=== PATIENT | female | born 1990 | race Caucasian/White ===

== ENCOUNTER → 2017-08-10 | Emergency (ER) | payer OTHER ==
[~2017-08-10] VITALS: Ht 160 cm; Wt 75.3 kg
[~2017-08-10] MED LIST: PROVENTIL3 ML/2.5 M IH; SYMBICORT 16010.2 GM IH; ZITHROMAX500 MG PO; ZYNCOF 20-400120 ML PO
== END | disposition home or self-care (01) ==
LOC: ER 11:18
DX: S30.0XXA Contusion of lower back and pelvis, initial encounter (principal); O26.891 Other specified pregnancy related conditions, first trimester; Z3A.10 10 weeks gestation of pregnancy; Z04.2 Encounter for examination and observation following work accident; Z34.01 Encounter for supervision of normal first pregnancy, first trimester; W01.0XXA Fall on same level from slipping, tripping and stumbling without subsequent striking against object, initial encounter; Y93.89 Activity, other specified; Y92.69 Other specified industrial and construction area as the place of occurrence of the external cause; Y99.8 Other external cause status

== ENCOUNTER 2018-02-26 13:13 | Inpatient (IN) | payer OTHER ==
[~2018-02-26] VITALS: Ht 160 cm; Wt 93.9 kg
== END 2018-03-11 14:20 | DRG 766 ==
LOC: LDR 02-27 14:45 → O/R 03-08 10:19 → OB/GYN 03-08 14:07
PROVIDERS: Specialist
PROC: 4A033R1 Measurement of Arterial Saturation, Peripheral, Percutaneous Approach (ICD-10-PCS; 2018-03-08)
PROC: 4A1HXCZ Monitoring of Products of Conception, Cardiac Rate, External Approach (ICD-10-PCS; 2018-03-08)
PROC: 10D00Z1 Extraction of Products of Conception, Low, Open Approach (ICD-10-PCS; principal; 2018-03-08 09:15)
DX: O48.0 Post-term pregnancy (principal); O65.8 Obstructed labor due to other maternal pelvic abnormalities; Z3A.40 40 weeks gestation of pregnancy; Z37.0 Single live birth

== ENCOUNTER 2018-03-06 20:12 | Outpatient (CLI) | payer OTHER | END 2018-03-07 11:13 | disposition home or self-care (01) | LOC: OBS/DEL 20:12 | DX: O47.1 False labor at or after 37 completed weeks of gestation (principal); O26.893 Other specified pregnancy related conditions, third trimester; N89.8 Other specified noninflammatory disorders of vagina; Z34.03 Encounter for supervision of normal first pregnancy, third trimester ==

== ENCOUNTER 2022-01-05 06:09 | Emergency (ER) | payer OTHER ==
[~2022-01-05] VITALS: Ht 172.7 cm; Wt 81.6 kg
== END 2022-01-05 09:41 | disposition home or self-care (01) ==
LOC: ER 06:09
DX: O99.513 Diseases of the respiratory system complicating pregnancy, third trimester (principal); Z3A.31 31 weeks gestation of pregnancy; J45.901 Unspecified asthma with (acute) exacerbation; Z20.822 Contact with and (suspected) exposure to COVID-19

== ENCOUNTER 2025-01-15 16:50 | Inpatient (IN) | payer OTHER ==
[~2025-01-15] VITALS: Ht 160 cm; Wt 90.7 kg
[2025-01-15] MEDS ORDERED: HYOSCYAMINE SULFATE 0.125 MG TAB.SUBL ONE (18:55)
[2025-01-15] MEDS ORDERED: FAMOTIDINE/PF 20 MG/2 ML VIAL ONE (18:55)
[2025-01-15] MEDS ORDERED: HYOSCYAMINE SULFATE 0.125 MG TAB.SUBL SL ONE (19:00)
[2025-01-15] MEDS ORDERED: FAMOTIDINE/PF 20 MG/2 ML VIAL IV PUSH ONE (19:00)
[2025-01-15 19:26] LABS: BASO % 0.3 % (0.1-1.2); EOS # 0.14 (0.04-0.54); EOS % 1.2 % (0.7-7.0); HEMATOCRIT 41.2 % (34.1-44.9); HEMOGLOBIN 13.5 g/dL (11.2-15.7); LYMPH # 1.91 (1.18-3.74); LYMPH % 15.9 % (19.3-53.1); MEAN CORPUSCULAR HEMOGLOBIN 28.4 pg (25.6-32.2); MONO # 0.71 (0.24-0.82); MONO % 5.9 % (4.7-12.5); NEUT # 9.15 (1.56-6.13); NEUT % 76.3 % (34.0-71.1); PLATELET COUNT 332 K/uL (163-369); RED BLOOD COUNT 4.75 M/uL (3.93-5.22); RED CELL DISTRIBUTION WIDTH 13.7 % (11.6-14.4)
[2025-01-15 20:02] LABS: CALCIUM 9.3 mg/dL (8.5-10.1); CREATININE SERUM 0.5 mg/dL (0.55-1.02); GFR 142.09; POTASSIUM 4.17 mEq/L (3.5-5.1)
[2025-01-15 20:28] LABS: PH,URINE 5.5 (5.0-8.0); URINE APPEARANCE Turbid; URINE BILIRRUBIN Moderate (NEGATIVE); URINE BLOOD Moderate; URINE COLOR Dark Yellow; URINE GLUCOSE Negative (NEGATIVE); URINE KETONE Trace (NEGATIVE); URINE LEUKOCYTE Trace; URINE NITRATE Positive; URINE PROTEIN Trace (NEGATIVE)
[2025-01-15] MEDS ORDERED: BUTALB/ACETAMINOPHEN/CAFFEINE 1 TAB TABLET PO ONE (20:30)
[2025-01-15] MEDS ORDERED: BUTALB/ACETAMINOPHEN/CAFFEINE 1 TAB TABLET PO STA (20:30)
[2025-01-15 20:32] LABS: URINE BACTERIA 1839.5 uL (0.0-1933); URINE EPITHELIAL CELLS 29.6 uL (0.0-38.8); URINE RBC 55.8 uL (0.0-20.8); URINE WBC 28.3 uL (0.0-23.2)
[2025-01-15 20:41] LABS: URINE CAST 0.88 uL (0.0-1.40)
[2025-01-15] MEDS ORDERED: 0.9 % SODIUM CHLORIDE 1,000 ML IV SCH (22:45)
[2025-01-15] MEDS ORDERED: MORPHINE SULFATE 2 MG/ML CARTRIDGE IV PRN (22:45)
[2025-01-15] MEDS ORDERED: ACETAMINOPHEN 325 MG TABLET PO PRN (22:45)
[2025-01-16] MEDS ORDERED: PIPERACILLIN/TAZOBACTAM SODIUM 3.375 GM in 0.9 % SODIUM CHLORIDE 100 ML IV SCH
[2025-01-16] MEDS ORDERED: PIPERACILLIN/TAZOBACTAM SODIUM 3.375 GM VIAL IV ONE (00:26)
[2025-01-16 01:54] LABS: INR 1.01; PARTIAL THROMBOPLASTIN TIME 24.5 SECONDS (22.0-34.0)
[2025-01-16 01:59] LABS: ALBUMIN 3.5 gm/dL (3.4-5.0); BILIRUBIN TOTAL 2.22 mg/dL (0.3-1.2); BILIRUBIN,CONJUGATED 1.62 mg/dL (0.0-0.2); BILIRUBIN,UNCONJUGATED 0.6 mg/dL (0.0-0.6); C-REACTIVE PROTEIN 1.23 MG/DL (0.00-0.29); TOTAL PROTEIN 7.5 gm/dL (6.4-8.2)
[2025-01-16 08:55] VITALS: BP 117/77; O2SAT 98
[2025-01-16 16:00] VITALS: BP 128/77; O2SAT 96
[2025-01-17] MEDS ORDERED: ONDANSETRON HCL 2 MG/ML VIAL IV PRN (02:45)
[2025-01-17] MEDS ORDERED: SODIUM CL 0.9% 100 ML IV.SOLN IV ONE (07:53)
[2025-01-17 08:14] LABS: ALBUMIN 3.4 gm/dL (3.4-5.0); BILIRUBIN TOTAL 1.23 mg/dL (0.3-1.2); CALCIUM 8.9 mg/dL (8.5-10.1); CREATININE SERUM 0.54 mg/dL (0.55-1.02); GFR 130.02; GLOBULINA 3.7 G/DL (2.4-3.5); POTASSIUM 4.17 mEq/L (3.5-5.1); TOTAL PROTEIN 7.1 gm/dL (6.4-8.2)
[2025-01-17 08:33] VITALS: BP 129/83; O2SAT 97
[2025-01-17 16:44] VITALS: BP 118/75; O2SAT 95
[2025-01-18] VITALS: BP 106/88; O2SAT 98
[2025-01-18 08:00] VITALS: BP 126/76; O2SAT 97
[2025-01-19 01:30] VITALS: BP 130/77; O2SAT 100
[2025-01-19 09:26] VITALS: BP 124/86; O2SAT 98
[2025-01-19 16:39] VITALS: BP 126/75; O2SAT 97
[2025-01-20 01:00] VITALS: BP 113/74; O2SAT 98
[2025-01-20 07:30] VITALS: BP 150/91; O2SAT 99
[2025-01-20] MEDS ORDERED: IOVERSOL 320 MG/ML - 50 ML VIAL IV ONE ×2 (09:35→11:30)
[2025-01-20] MEDS ORDERED: SUGAMMADEX SODIUM 200 MG/2 ML VIAL IV ONE (09:35)
[2025-01-20] MEDS ORDERED: DICLOFENAC SODIUM 100 MG SUPP.RECT TOP ONE (10:30)
[2025-01-20] MEDS ORDERED: GLUCAGON 1 MG VIAL IV ONE (11:30)
[2025-01-20] MEDS ORDERED: PIPERACILLIN/TAZOBACTAM SODIUM 3.375 GM VIAL IV ONE (12:24)
[2025-01-20 16:53] VITALS: BP 124/84; O2SAT 97
[2025-01-21] VITALS: BP 102/64; O2SAT 98
[2025-01-21 09:22] VITALS: BP 129/87; O2SAT 98
[2025-01-21 13:43] LABS: BASO % 0.3 % (0.1-1.2); EOS # 0.29 (0.04-0.54); EOS % 4.2 % (0.7-7.0); HEMATOCRIT 40.4 % (34.1-44.9); HEMOGLOBIN 13.3 g/dL (11.2-15.7); LYMPH # 2.02 (1.18-3.74); LYMPH % 29.4 % (19.3-53.1); MONO # 0.47 (0.24-0.82); MONO % 6.8 % (4.7-12.5); NEUT # 4.06 (1.56-6.13); NEUT % 59.2 % (34.0-71.1); PLATELET COUNT 287 K/uL (163-369); RED BLOOD COUNT 4.58 M/uL (3.93-5.22); RED CELL DISTRIBUTION WIDTH 13.5 % (11.6-14.4)
[2025-01-21 14:15] LABS: ALBUMIN 3.6 gm/dL (3.4-5.0); BILIRUBIN TOTAL 0.51 mg/dL (0.3-1.2); CALCIUM 9.3 mg/dL (8.5-10.1); CREATININE SERUM 0.51 mg/dL (0.55-1.02); GFR 138.88; POTASSIUM 3.66 mEq/L (3.5-5.1); TOTAL PROTEIN 7.6 gm/dL (6.4-8.2)
[2025-01-21 16:00] VITALS: BP 137/85; O2SAT 97
[2025-01-22 03:56] VITALS: BP 104/68; O2SAT 100
[2025-01-22 08:15] VITALS: BP 137/92; O2SAT 100
[2025-01-22] MEDS ORDERED: SUGAMMADEX SODIUM 200 MG/2 ML VIAL IV ONE (08:30)
[2025-01-22] MEDS ORDERED: MORPHINE SULFATE 4 MG/ML VIAL IV ONE (10:50)
[2025-01-22] MEDS ORDERED: PIPERACILLIN/TAZOBACTAM SODIUM 3.375 GM VIAL IV ONE (11:41)
[2025-01-22 13:08] VITALS: BP 116/75; O2SAT 95
[2025-01-22 16:49] VITALS: BP 126/83; O2SAT 97
[2025-01-22] MEDS ORDERED: KETOROLAC TROMETHAMINE 30 MG VIAL IV PRN (17:15)
[2025-01-23 00:52] VITALS: BP 130/81; O2SAT 100
[2025-01-23 08:35] VITALS: BP 123/81; O2SAT 95
[2025-01-23 13:53] LABS: ALBUMIN 3.5 gm/dL (3.4-5.0); BILIRUBIN TOTAL 0.47 mg/dL (0.3-1.2); CALCIUM 9.7 mg/dL (8.5-10.1); CREATININE SERUM 0.59 mg/dL (0.55-1.02); GFR 117.38; GLOBULINA 4.2 G/DL (2.4-3.5); POTASSIUM 3.93 mEq/L (3.5-5.1); TOTAL PROTEIN 7.7 gm/dL (6.4-8.2)
[2025-01-23 16:51] VITALS: BP 119/77; O2SAT 96
[2025-01-24 00:58] VITALS: BP 118/79; O2SAT 98
[2025-01-24 08:06] VITALS: BP 118/86; O2SAT 97
[2025-01-24] MEDS ORDERED: PIPERACILLIN/TAZOBACTAM SODIUM 3.375 GM in DEXTROSE 5 % IN WATER 100 ML IV SCH (13:30)
[2025-01-24 16:40] VITALS: BP 102/71; O2SAT 97
== END 2025-01-24 17:35 | disposition home or self-care (01) | DRG 419 ==
LOC: ER 17:20 → SURG 01-16 00:09
PROVIDERS: Emergency Medicine; General Practice; Internal Medicine; Surgery; ADMIT Internal Medicine; ATTEND Internal Medicine
PROC: BW40ZZZ Ultrasonography of Abdomen (ICD-10-PCS; 2025-01-15)
PROC: BF37ZZZ Magnetic Resonance Imaging (MRI) of Pancreas (ICD-10-PCS; 2025-01-16)
PROC: 0FC98ZZ Extirpation of Matter from Common Bile Duct, Via Natural or Artificial Opening Endoscopic (ICD-10-PCS; 2025-01-20)
PROC: BF13YZZ Fluoroscopy of Gallbladder and Bile Ducts using Other Contrast (ICD-10-PCS; 2025-01-20)
PROC: XFJB8A7 Inspection of Hepatobiliary Duct using Single-use Duodenoscope, New Technology Group 7 (ICD-10-PCS; 2025-01-20)
PROC: 0F798ZZ Dilation of Common Bile Duct, Via Natural or Artificial Opening Endoscopic (ICD-10-PCS; 2025-01-20)
PROC: 0FT44ZZ Resection of Gallbladder, Percutaneous Endoscopic Approach (ICD-10-PCS; principal; 2025-01-22 07:00)
DX: K80.10 Calculus of gallbladder with chronic cholecystitis without obstruction (principal)